=== PATIENT | male | born 1975 | race Caucasian/White ===

== ENCOUNTER 2020-10-10 12:18 | Emergency (ER) | payer OTHER ==
[~2020-10-10 12:18] MED LIST: BENADRYL25 M1 PO; PRILOSEC OTC20 MG PO
[2020-10-10 14:23] LABS: BASOPHIL 0.4 % (0-2); EOSINOPHIL 1.8 % (0-5); HCT 51.7 % (42.0-52.0); LYMPHOCYTE 15.2 % (15-48); MCH 32.7 pg (25.0-31.0); MCHC 34.8 g/dL (32.0-36.0); MCV 93.8 fL (78.0-100.0); MONOCYTE 7.8 % (0-12); MPV 10.1 fL (6.0-9.5); NEUTROPHIL 74.3 % (41-80); NRBC 0; PLT 221 K/uL (150-400); RBC 5.51 M/uL (4.70-6.00); RDW 12.4 % (11.5-14.0); WBC 11.5 K/uL (4.0-10.5)
[2020-10-10 14:35] LABS: CREATININE 1.07 mg/dL (0.67-1.17); POTASSIUM 4.5 mmol/L (3.5-5.1)
[2020-10-10] MEDS ORDERED: MEDROL 4MG DOSEP4 MG PO (15:07)
[2020-10-10] MEDS ORDERED: VENTOLIN HFA IN18 GM INH (15:07)
[2020-10-10] MEDS ORDERED: AUGMENTIN 875-1 EACH PO (15:07)
== END 2020-10-10 15:31 | disposition home or self-care (01) ==
LOC: FER 12:18
PROVIDERS: Nurse Practitioner Family
DX: J06.9 Acute upper respiratory infection, unspecified (principal); Z88.6 Allergy status to analgesic agent; Z20.822 Contact with and (suspected) exposure to COVID-19
CPT/HCPCS: 36415; 71045; 80048; 84484; 85025; 93005; J1100; U0002

== ENCOUNTER 2020-11-07 12:45 | Emergency (ER) | payer OTHER ==
[~2020-11-07 12:45] MED LIST changes: +AUGMENTIN 875-1 EACH PO; +MEDROL 4MG DOSEP4 MG PO; +VENTOLIN HFA IN18 GM INH
[2020-11-07 15:16] LABS: BASOPHIL 0.6 % (0-2); EOSINOPHIL 2.3 % (0-5); HCT 52.7 % (42.0-52.0); LYMPHOCYTE 30.4 % (15-48); MCH 32.5 pg (25.0-31.0); MCHC 34.2 g/dL (32.0-36.0); MCV 95.1 fL (78.0-100.0); MPV 9.7 fL (6.0-9.5); NEUTROPHIL 59.3 % (41-80); NRBC 0; PLT 265 K/uL (150-400); RBC 5.54 M/uL (4.70-6.00); RDW 12.5 % (11.5-14.0); WBC 8.2 K/uL (4.0-10.5)
[2020-11-07 15:49] LABS: BILIRUBIN - TOTAL 0.4 mg/dL (0.2-1.0); BUN/CREAT RATIO (CALC) 14.3 RATIO; CREATININE 1.12 mg/dL (0.67-1.17); GLOBULIN (CALCULATION) 3.5 g/dL; POTASSIUM 4.3 mmol/L (3.5-5.1); TOTAL PROTEIN 7.5 g/dL (6.4-8.2)
[2020-11-07 16:50] LABS: BILIRUBIN NEGATIVE (NEGATIVE); BLOOD TRACE-INTACT Ery/uL (NEGATIVE); CLARITY CLEAR (CLEAR); COLOR YELLOW (YELLOW); GLUCOSE (U) NORMAL (NORMAL); LEUKOCYTES NEGATIVE Leu/uL (NEGATIVE); NITRITE NEGATIVE (NEGATIVE); PROTEIN NEGATIVE (NEGATIVE); SPECIFIC GRAVITY 1.025 (1.001-1.030); UROBILINOGEN 0.2 mg/dL (0.2-1.0); pH 5.5 (5.0-9.0)
[2020-11-07 16:57] LABS: BACTERIA TRACE
[2020-11-07] MEDS ORDERED: BACLOFEN 10MG T10 MG PO (17:28)
[2020-11-07] MEDS ORDERED: NAPROXEN500 MG PO (17:28)
[2020-11-11 21:08] LABS: CHLAMYDIA TRACHOMATIS, NAA Negative (Negative); NEISSERIA GONORRHOEAE, NAA Negative (Negative)
== END 2020-11-07 17:46 | disposition home or self-care (01) ==
LOC: FER 12:45
PROVIDERS: Internal Medicine; Nurse Practitioner Family
DX: S39.012A Strain of muscle, fascia and tendon of lower back, initial encounter (principal); J43.9 Emphysema, unspecified; F17.210 Nicotine dependence, cigarettes, uncomplicated; Z88.6 Allergy status to analgesic agent; X50.0XXA Overexertion from strenuous movement or load, initial encounter
CPT/HCPCS: 36415; 72110; 73502; 80053; 81001; 85025; 87491; 87591; 96372; J1100; J1885

== ENCOUNTER 2021-11-17 19:34 | Emergency (ER) | payer OTHER ==
[~2021-11-17 19:34] MED LIST changes: +BACLOFEN 10MG T10 MG PO; +NAPROXEN500 MG PO
[2021-11-17 21:18] LABS: BASOPHIL 0.9 % (0-2); EOSINOPHIL 2.4 % (0-5); HCT 48.9 % (42.0-52.0); LYMPHOCYTE 40.4 % (15-48); MCH 32.4 pg (25.0-31.0); MCHC 34.8 g/dL (32.0-36.0); MCV 93.3 fL (78.0-100.0); MPV 10.4 fL (6.0-9.5); NEUTROPHIL 48.6 % (41-80); NRBC 0; PLT 263 K/uL (150-400); RBC 5.24 M/uL (4.70-6.00); RDW 12.5 % (11.5-14.0); WBC 9.2 K/uL (4.0-10.5)
[2021-11-17 21:31] LABS: BUN/CREAT RATIO (CALC) 16.8 RATIO; CREATININE 1.19 mg/dL (0.67-1.17)
== END 2021-11-17 22:20 | disposition home or self-care (01) ==
LOC: FER 19:34
PROVIDERS: Nurse Practitioner Family
DX: F07.81 Postconcussional syndrome (principal); J43.9 Emphysema, unspecified; K21.9 Gastro-esophageal reflux disease without esophagitis; Z88.6 Allergy status to analgesic agent; Z79.899 Other long term (current) drug therapy; Z28.310 Unvaccinated for COVID-19
CPT/HCPCS: 36415; 70450; 80048; 85025; J2405; J7030